=== PATIENT | female | born 1990 | race Hispanic/Latino ===

== ENCOUNTER 2017-04-22 01:13 | Emergency (ER) | payer SELFPAY ==
[2017-04-22] MEDS ORDERED: ZOFRAN ODT PO ONE (01:40)
[2017-04-22] MEDS ORDERED: ZOFRAN ODT ONE (01:42)
[2017-04-22 02:29] LABS: Anion Gap 23 mmol/L; BUN/Creatinine Ratio 15.71; Blood Urea Nitrogen 11 mg/dL (7-17); Carbon Dioxide 19 mmol/L (22-30); Chloride 99.4 mmol/L (98-107); Glucose 140 mg/dL (65-100); Potassium 3.8 mmol/L (3.6-5.0); Sodium 138 mmol/L (137-145)
[2017-04-22 02:39] LABS: Basophils % (Auto) 0.4 % (0.0-1.8); Eosinophils % (Auto) 0.3 % (0.0-4.3); Hematocrit 45.8 % (30.3-42.9); Hemoglobin 15.4 gm/dl (10.1-14.3); Mean Corpuscular HGB Conc 34 % (30-34); Mean Corpuscular Hemoglobin 29 pg (28-32); Mean Corpuscular Volume 87 fl (79-97); Platelet Count 324 K/mm3 (140-440); Red Blood Count 5.24 M/mm3 (3.65-5.03); Red Cell Distribution Width 13.3 % (13.2-15.2); White Blood Count 14.8 K/mm3 (4.5-11.0)
[2017-04-22 04:31] LABS: Alanine Aminotransferase 18 units/L (7-56); Albumin 4.7 g/dL (3.9-5); Albumin/Globulin Ratio 1.2 %; Alkaline Phosphatase 55 units/L (35-129); Lipase 21 units/L (13-60); Total Protein 8.5 g/dL (6.3-8.2)
[2017-04-22 04:36] LABS: Bilirubin,Direct < 0.2 mg/dL (0-0.2); Bilirubin,Indirect 0.3 mg/dL
[2017-04-22] MEDS ORDERED: ZOFRAN IV ONE (07:38)
[2017-04-22] MEDS ORDERED: NACL 0.9% 1000 ML 1,000 ML IV ONE ×3 (07:38→09:25)
--- NOTE | 2017-04-22 07:40 | Emergency Department Report ---
HPI - General Chief Complaint: Headache Time Seen by Provider: 04/22/17 07:23 - HPI HPI: This is a 26-year-old female presents to the emergency department via EMS from home with complaint of a headache to the left frontal and temporal portion of her head has been going on since last night. She denies any vision change or blurry vision but does have some photophobia. The patient is a history of migraine headaches and says this is consistent with her previous migraines except for this time she is currently not dizzy. She denies any slurred speech, problems with movement or ambulation, or any neurological deficits. It is associated with some nausea and vomiting and the patient said she had some generalized abdominal discomfort while vomiting earlier but that has since resolved. She did not take anything for symptoms prior to presentation and did not receive anything by EMS in route. No recent travel or sick contacts at home. She denies any illicit drug use. She does not have a primary care physician. ED Past Medical Hx - Past Medical History Previous Medical History?: Yes Hx Headaches / Migraines: Yes Additional medical history: Vaginal delivery x 2 - Social History Smoking Status: Never Smoker Substance Use Type: None - Medications Home Medications: Home Medications Medication Instructions Recorded Confirmed Last Taken Type Sulfamethoxazole/Trimethoprim 1 each PO BID #20 tablet 05/19/16 Unknown Rx [Bactrim DS TAB] ED Review of Systems ROS: Stated complaint: GENERAL ILLNESS Other details as noted in HPI Comment: All other systems reviewed and negative Constitutional: denies: chills, fever Eyes: other (photophobia). denies: eye discharge, vision change ENT: denies: ear pain, throat pain Respiratory: denies: cough, shortness of breath, wheezing Cardiovascular: denies: chest pain, palpitations Gastrointestinal: nausea, vomiting Genitourinary: denies: urgency, dysuria, discharge Musculoskeletal: denies: back pain, joint swelling, arthralgia Skin: denies: rash, lesions Neurological: headache. denies: weakness, paresthesias Physical Exam - Physical Exam Vital Signs: Vital Signs 04/22/17 04/22/17 01:18 01:19 Temperature 97.8 F 97.8 F Pulse Rate 87 87 Respiratory 18 18 Rate Blood Pressure 100/68 Blood Pressure 100/68 [Right] O2 Sat by Pulse 99 99 Oximetry Physical Exam: GENERAL: The patient is well-developed well-nourished. HEENT: Normocephalic. Atraumatic. Extraocular motions are intact. Patient has moist mucous membranes. Pupils equal reactive to light bilaterally. No nystagmus. NECK: Supple. Trach is midline. CHEST/LUNGS: Clear to auscultation. There is no respiratory distress noted. HEART/CARDIOVASCULAR: Regular. There is no tachycardia. There is no gallop rub or murmur. ABDOMEN: Abdomen is soft, nontender. Patient has normal bowel sounds. There is no abdominal distention. SKIN: Skin is warm and dry. NEURO: The patient is awake, alert, and oriented. The patient is cooperative. The patient has no focal neurologic deficits. The patient has normal speech. Cranial nerves II through XII grossly intact. No dysmetria. No pronator drift. MUSCULOSKELETAL: There is no tenderness or deformity. There is no limitation range of motion. There is no evidence of acute injury. ED Course Vital Signs 04/22/17 04/22/17 01:18 01:19 Temperature 97.8 F 97.8 F Pulse Rate 87 87 Respiratory 18 18 Rate Blood Pressure 100/68 Blood Pressure 100/68 [Right] O2 Sat by Pulse 99 99 Oximetry ED Medical Decision Making - Lab Data Result diagrams: 04/22/17 01:49 04/22/17 01:49 - Medical Decision Making 26-year-old female presents to the emergency department with complaint of left- sided headache that is consistent with previous migraines. She also has some nausea and vomiting cause some upper abdominal discomfort that has since improved if not resolved. Labs are mostly unremarkable except for a leukocytosis of 14,000 and a slightly decreased CO2 level. She has normal belly labs. There is no urinary tract infection and the patient is not . She was given some IV fluid and a single pain pill and upon reevaluation she is feeling improved. Vital signs stable throughout her ED course including being afebrile. There is no focal, motor or sensory deficits in her cranial nerves are intact. The patient will be given referrals for primary care and encouraged to return to the ER with any worsening or symptoms or any acute distress. She understands and agrees to plan. - Differential Diagnosis migraine headache, tension, cluster headache Critical Care Time: No Critical care attestation.: If time is entered above; I have spent that time in minutes in the direct care of this critically ill patient, excluding procedure time. ED Disposition Clinical Impression: Headache Qualifiers: Headache type: unspecified Headache chronicity pattern: episodic headache Intractability: not intractable Qualified Code(s): R51 - Headache Nausea & vomiting Qualifiers: Vomiting type: unspecified Vomiting Intractability: non-intractable Qualified Code(s): R11.2 - Nausea with vomiting, unspecified Disposition: DC- TO HOME OR SELFCARE Is pt being admited?: No Condition: Stable Instructions: Migraine Headache (ED), Acute Headache (ED), Acute Nausea and Vomiting (ED) Additional Instructions: Please follow-up with a primary care physician in the next few days. Return to the emergency department with any worsening of your symptoms or any acute distress. Referrals: PRIMARY CARE,MD [Primary Care Provider] - 3-5 Days [facility] [Outside] - 3-[address] [facility] [place] [Outside] - 3-5 Days [facility] [Outside] - 3-5 Days [facility] [Outside] - 3-5 Days Time of Disposition: 10:57
[2017-04-22] MEDS ORDERED: MORPHINE IV ONE (08:09)
[2017-04-22 08:17] LABS: Bilirubin,Urine NEG (Negative); Blood,Urine NEG (Negative); Ketones,Urine TR mg/dL (Negative); Leukocyte Esterase,Urine TR (Negative); Mucus,Urine 3+ /HPF; Nitrite,Urine NEG (Negative); Urobilinogen,Urine < 2.0 mg/dL (<2.0)
[2017-04-22] MEDS ORDERED: SUBLIMAZE IV ONE (08:58)
[2017-04-22] MEDS ORDERED: REGLAN IV ONE (09:25)
[2017-04-22] MEDS ORDERED: NORCO 5/325 PO ONE (09:25)
[2017-04-22] MEDS ORDERED: BENADRYL ONE (09:47)
[2017-04-22] MEDS ORDERED: BENADRYL IV ONE (09:56)
[2017-04-22 10:54] VITALS: BP 99/57
== END 2017-04-22 11:07 | disposition home or self-care (01) ==
LOC: ED 01:13
DX: R51 Headache (principal); R11.2 Nausea with vomiting, unspecified
CPT/HCPCS: 36415; 80048; 80074; 81001; 81025; 83690; 85025; 96361; 96374; 96375; 99284; J1200; J2405; J2765; J7030; Q0162

== ENCOUNTER 2019-10-21 07:45 | Emergency (ER) | payer SELFPAY ==
[2019-10-21] MEDS ORDERED: IBUPROFEN 600 MG TAB PO ONE (09:01)
[2019-10-21] MEDS ORDERED: SODIUM CHLORIDE 0.9% 1000 ML 1,000 ML IV ONE (09:09)
[2019-10-21] MEDS ORDERED: ONDANSETRON 4 MG/2 ML INJ IV ONE (09:10)
[2019-10-21] MEDS ORDERED: KETOROLAC 30 MG/1 ML INJ IV ONE (09:10)
--- NOTE | 2019-10-21 09:13 | Emergency Department Report ---
- General Chief Complaint: Pain General Stated Complaint: BODY PAIN Time Seen by Provider: 10/21/19 09:01 Source: patient, EMS Mode of arrival: Ambulatory Limitations: No Limitations - History of Present Illness Initial Comments: 29-year-old female presents to the emergency room complaining of generalized body aches, fever, chills, nausea and decreased appetite 4 days. Patient also complains of a cough which is causing her more body aches when she coughs. Patient last night float was last night. Patient does not have a primary care provider. Patient has no past medical history currently takes no medications on a daily basis and has an allergy to iodine. MD Complaint: fever, cough, sore throat Onset/Timin -: days(s) Severity: severe Severity scale (0 -10): 8 Quality: aching Consistency: constant Worsens With: other (coughing) Associated Symptoms: fever, chills, myalgias, sore throat, cough, nausea Treatments Prior to Arrival: "cold medicine" (last night) - Related Data Previous Rx's Medication Instructions Recorded Last Taken Type Sulfamethoxazole/Trimethoprim 1 each PO BID #20 tablet 05/19/16 Unknown Rx [Bactrim DS TAB] Benzonatate [Tessalon Perles] 100 mg PO Q8HR #15 capsule 10/21/19 Unknown Rx Allergies Allergy/AdvReac Type Severity Reaction Status Date / Time iodine AdvReac Unknown Verified 11/17/13 04:40 ED Review of Systems ROS: Stated complaint: BODY PAIN Other details as noted in HPI Comment: All other systems reviewed and negative ED Past Medical Hx - Past Medical History Previous Medical History?: Yes Hx Headaches / Migraines: Yes Additional medical history: Vaginal delivery x 2 - Surgical History Past Surgical History?: No - Social History Smoking Status: Never Smoker Substance Use Type: None - Medications Home Medications: Home Medications Medication Instructions Recorded Confirmed Last Taken Type Sulfamethoxazole/Trimethoprim 1 each PO BID #20 tablet 05/19/16 Unknown Rx [Bactrim DS TAB] Benzonatate [Tessalon Perles] 100 mg PO Q8HR #15 capsule 10/21/19 Unknown Rx ED Physical Exam - General Limitations: No Limitations General appearance: alert, in no apparent distress, lethargic - Head Head exam: Present: atraumatic, normocephalic - Eye Eye exam: Present: normal appearance - ENT ENT exam: Present: mucous membranes moist, TM's normal bilaterally - Expanded ENT Exam Expanded Throat exam: Positive: tonsillar erythema. Negative: tonsillomegaly, tonsillar exudate - Neck Neck exam: Present: normal inspection, full ROM - Respiratory Respiratory exam: Present: normal lung sounds bilaterally, other (intermittent coughing). Absent: respiratory distress - Cardiovascular Cardiovascular Exam: Present: tachycardia - GI/Abdominal GI/Abdominal exam: Present: soft, normal bowel sounds - Extremities Exam Extremities exam: Present: normal inspection - Back Exam Back exam: Present: normal inspection - Neurological Exam Neurological exam: Present: alert, oriented X3 - Psychiatric Psychiatric exam: Present: normal affect, normal mood - Skin Skin exam: Present: warm, dry, intact, normal color. Absent: rash ED Course Vital Signs 10/21/19 10/21/19 07:48 09:55 Temperature 99.8 F H Pulse Rate 132 H Respiratory 18 18 Rate O2 Sat by Pulse 97 Oximetry - Reevaluation(s) Reevaluation #1: 10/21/19 11:05 Patient reports she feels much better after medication. ED Medical Decision Making - Medical Decision Making 29-year-old female presents to the emergency room complaining of generalized body aches, fever, chills, nausea and decreased appetite 4 days. Patient also complains of a cough which is causing her more body aches when she coughs. Patient last night float was last night. Patient does not have a primary care provider. Patient has no past medical history currently takes no medications on a daily basis and has an allergy to iodine. Patient be given IV with normal saline IV Toradol and IV Zofran by mouth Robitussin before meals. Critical care attestation.: If time is entered above; I have spent that time in minutes in the direct care of this critically ill patient, excluding procedure time. ED Disposition Clinical Impression: Flu-like symptoms Disposition: DC-01 TO HOME OR SELFCARE Is pt being admited?: No Does the pt Need Aspirin: No Condition: Stable Instructions: Viral Syndrome (ED) Additional Instructions: Take cough medication as prescribed. He can take [id number] Tylenol or ibuprofen for pain management. Increase her fluid intake advance her diet as tolerated Prescriptions: Benzonatate [Tessalon Perles] 100 mg PO Q8HR #15 capsule Referrals: PRIMARY CARE, [Primary Care Provider] - 3-5 Days [facility] [Provider Group] - 3-5 Days Forms: Work/School Release Form(ED)
[2019-10-21] MEDS ORDERED: guaiFENesin/CODEINE 100-10MG ORAL LIQD 5 ML PO ONE (09:30)
[2019-10-21 11:56] VITALS: BP 104/64
== END 2019-10-21 11:54 | disposition home or self-care (01) ==
LOC: ED 07:45
DX: R63.0 Anorexia (principal); R50.9 Fever, unspecified; R11.0 Nausea; R05 Cough; G43.909 Migraine, unspecified, not intractable, without status migrainosus; Z79.899 Other long term (current) drug therapy; Z91.041 Radiographic dye allergy status
CPT/HCPCS: 96374; 96375; 99283; J1885; J2405; J7030

== ENCOUNTER 2020-12-23 23:11 | Emergency (ER) | payer SELFPAY ==
[2020-12-24 00:02] VITALS: BP 106/57
--- NOTE | 2020-12-24 02:39 | Emergency Department Report ---
ED General Adult HPI - General Chief complaint: Skin/Abscess/Foreign Body Stated complaint: LEFT ARM PAIN Time Seen by Provider: 12/24/20 02:14 Source: patient Mode of arrival: Ambulatory Limitations: No Limitations - History of Present Illness Initial comments: 30-year-old female patient presents with complaints of left axillary abscess x1 week. Patient states she has history of hidradenitis suppurativa and is currently on doxycycline and topical clindamycin. She denies any fever/chills/sweats and rates her pain as a 10/10 in severity. Patient states she has been taking doxycycline for approximately 20 days. - Related Data Previous Rx's Medication Instructions Recorded Last Taken Type Sulfamethoxazole/Trimethoprim 1 each PO BID #20 tablet 05/19/16 Unknown Rx [Bactrim DS TAB] Benzonatate [Tessalon Perles] 100 mg PO Q8HR #15 capsule 10/21/19 Unknown Rx Acetaminophen/Codeine [Tylenol 1 tab PO Q8H PRN #6 tab 12/24/20 Unknown Rx /Codeine # 3 tab] Ibuprofen [Motrin 800 MG tab] 800 mg PO Q8HR PRN #20 tablet 12/24/20 Unknown Rx Allergies Allergy/AdvReac Type Severity Reaction Status Date / Time iodine AdvReac Unknown Verified 11/17/13 04:40 ED Review of Systems ROS: Stated complaint: LEFT ARM PAIN Other details as noted in HPI Constitutional: denies: chills, diaphoresis, fever, malaise, weakness Gastrointestinal: denies: nausea, vomiting Musculoskeletal: denies: arthralgia Skin: lesions ED Past Medical Hx - Past Medical History Previous Medical History?: Yes Hx Headaches / Migraines: Yes Additional medical history: Vaginal delivery x 2. hidradenitis. - Surgical History Past Surgical History?: No - Social History Smoking Status: Never Smoker Substance Use Type: None - Medications Home Medications: Home Medications Medication Instructions Recorded Confirmed Last Taken Type Sulfamethoxazole/Trimethoprim 1 each PO BID #20 tablet 05/19/16 Unknown Rx [Bactrim DS TAB] Benzonatate [Tessalon Perles] 100 mg PO Q8HR #15 capsule 10/21/19 Unknown Rx Acetaminophen/Codeine [Tylenol 1 tab PO Q8H PRN #6 tab 12/24/20 Unknown Rx /Codeine # 3 tab] Ibuprofen [Motrin 800 MG tab] 800 mg PO Q8HR PRN #20 tablet 12/24/20 Unknown Rx ED Physical Exam - General Limitations: No Limitations General appearance: alert, in no apparent distress - Head Head exam: Present: atraumatic, normocephalic - Eye Eye exam: Present: normal appearance. Absent: scleral icterus - Neck Neck exam: Present: full ROM - Respiratory Respiratory exam: Absent: respiratory distress - Cardiovascular Cardiovascular Exam: Present: regular rate - Extremities Exam Extremities exam: Present: full ROM - Neurological Exam Neurological exam: Present: alert, oriented X3, normal gait - Psychiatric Psychiatric exam: Present: normal affect, normal mood - Skin Skin exam: Present: warm, dry, intact, erythema (Approximately 3 cm round erythemic area noted to the left axilla with central fluctuance; no cellulitic changes noted) ED Course Vital Signs 12/23/20 23:57 Temperature 98.3 F Pulse Rate 60 Respiratory 17 Rate Blood Pressure 106/57 O2 Sat by Pulse 98 Oximetry - I & D Arm Type of Procedure: Simple Site: Left axilla Blade Size: 11 I & D Procedure: betadine prep, sterile drapes applied, sterile dressing applied Progress: 10 cc of lidocaine 1% used anesthetize area. Mild purulent drainage obtained. Patient tolerated procedure well without any immediate complications. ED Medical Decision Making - Medical Decision Making 30-year-old female patient presents with complaints of left axillary abscess x1 week. Patient states she has history of hidradenitis suppurativa and is currently on doxycycline and topical clindamycin. She denies any fever/chills/sweats and rates her pain as a 10/10 in severity. Patient states she has been taking doxycycline for approximately 20 days. Incision and drainage performed. Patient tolerated procedure well. Patient to continue with her doxycycline and clindamycin. Patient given follow-up for PCP and general surgery. Strict return precautions were discussed in detail with patient who verbalized understanding. Critical care attestation.: If time is entered above; I have spent that time in minutes in the direct care of this critically ill patient, excluding procedure time. ED Disposition Clinical Impression: Hidradenitis suppurativa, Abscess Disposition: DC- TO HOME OR SELFCARE Is pt being admited?: No Condition: Stable Instructions: Skin Abscess, Incision and Drainage, Care After, Hidradenitis Suppurativa Prescriptions: Ibuprofen [Motrin 800 MG tab] 800 mg PO Q8HR PRN #20 tablet PRN Reason: pain Acetaminophen/Codeine [Tylenol /Codeine # 3 tab] 1 tab PO Q8H PRN #6 tab PRN Reason: Pain , Severe (7-10) Referrals: VALORIE MONSALVE DO [Staff Physician] - 2-3 Days
[2020-12-24] MEDS ORDERED: oxyCODONE /ACETAMINOPHEN 5-325MG TAB PO ONE (02:40)
== END 2020-12-24 04:22 | disposition home or self-care (01) ==
LOC: ED 23:11
DX: L73.2 Hidradenitis suppurativa (principal); L02.412 Cutaneous abscess of left axilla; G43.909 Migraine, unspecified, not intractable, without status migrainosus; Z79.899 Other long term (current) drug therapy; Z91.041 Radiographic dye allergy status
CPT/HCPCS: 87116